=== PATIENT | male | born 1930 | race Caucasian/White ===

== ENCOUNTER 2016-12-26 12:05 | Outpatient (CLI) | END 2016-12-26 12:06 | LOC: AMBL 12:05 | PROVIDERS: ATTEND Internal Medicine Geriatric Medicine | DX: R20.0 Anesthesia of skin (principal) ==

== ENCOUNTER 2017-05-28 09:47 | Emergency (ER) ==
[2017-05-28 09:51] VITALS: BP 199/98; TEMP 97; BMI 28.7
[2017-05-28] MEDS ORDERED: ZESTRIL PO STA (10:05)
[2017-05-28] MEDS: AFRIN NASAL SPRAY NAS STA ×2 (10:17→10:25)
[2017-05-28] MEDS ORDERED: COCAINE 4% TP STA (10:34)
--- NOTE | 2017-05-28 10:53 | ED.PDOC ---
General ED Provider: Dr. GILBERT ROCHA Chief Complaint: Nosebleed Stated Complaint: nosebleed Time Seen by Physician: 09:50 (lisette with wilber at all times ) Mode of Arrival: Walk-In Information Source: Patient Exam Limitations: No limitations Primary Care Provider: GIBSON KINNEY Nursing and Triage Documentation Reviewed and Agree: Yes Reviewed sepsis parameters & appropriate labs ordered?: Yes System Inflammatory Response Syndrome: Not Applicable Sepsis Protocol: For patient's 13 years and over: Temp is 96.8 and below OR 101 and greater Pulse >90 BPM Resp >20/minute Acutely Altered Mental Status Are patient's symptoms suggestive of a new infection, such as: -Pneumonia -Skin, Soft Tissue -Endocarditis -UTI -Bone, Joint Infection -Implantable Device -Acute Abdominal Infection -Wound Infection -Meningitis -Blood Stream Catheter Infection -Unknown System Inflammatory Response Syndrome: Not Applicable EENT Complaint Exam - Nasal Complaint/Exam Onset/Duration: today Symptoms Are: Still present Timing: Intermittent Initial Severity: Mild Current Severity: Mild Location: Bilateral Character: Light bleeding Aggravating: Reports: Hypertension Alleviating: Reports: None Associated Signs and Symptoms: Reports: Nasal congestion. Denies: Bruising, Hematuria, Hematochezia, Sinus pain, Nasal discharge, Foreign body, Abnormal coags Related History: Reports: Anticoagulants (plavix) Nasal Surgical History: Reports: None Bleeding Present At: Right nostril, Left nostril Foreign Body Present: No Septal Hematoma: No Differential Diagnoses: Allergic Rhinitis, Coagulopathy, Hypertension Review of Systems - Review Of Systems Constitutional: Reports: No symptoms Eyes: Reports: No symptoms Ears, Nose, Mouth, Throat: Reports: Epistaxis Respiratory: Reports: No symptoms Cardiac: Reports: No symptoms GI: Reports: No symptoms : Reports: No symptoms Musculoskeletal: Reports: No symptoms Skin: Reports: No symptoms Neurological: Reports: No symptoms Endocrine: Reports: No symptoms Hematologic/Lymphatic: Reports: No symptoms All Other Systems: Reviewed and Negative Past Medical History - Past Medical History Previously Healthy: No Endocrine: Reports: None, Dyslipidemia Cardiovascular: Reports: None Respiratory: Reports: None Hematological: Reports: None Gastrointestinal: Reports: None Genitourinary: Reports: None Neuro/Psych: Reports: None Musculoskeletal: Reports: None Cancer: Reports: None - Surgical History General Surgical History: Reports: None - Family History Family History: Reports: None - Social History Smoking Status: Never smoker Hx Substance Use: No Alcohol Screening: Occasionally - Immunizations Tetanus Shot up to Date: No Physical Exam - Physical Exam Appearance: Well-appearing, No pain distress, Well-nourished Eyes: JEREMI, EOMI, Conjunctiva clear ENT: Epistaxis Respiratory: Airway patent, Breath sounds clear, Breath sounds equal, Respirations nonlabored Cardiovascular: RRR, Pulses normal, No rub, No murmur GI/: Soft, Nontender, No masses, Bowel sounds normal, No Organomegaly Musculoskeletal: Normal strength, ROM intact, No edema, No calf tenderness Skin: Warm, Dry, Normal color Neurological: Sensation intact, Motor intact, Reflexes intact, Cranial nerves intact, Alert, Oriented Psychiatric: Affect appropriate, Mood appropriate Physician Notification - Case Discussed Physician Notified: pmd Time of Notification: 10:55 (contact ENT) Physician Notified: purchase ENT Time of Notification: 11:37 Critical Care Note - Critical Care Note Total Time (mins): 0 Course - Course Hematology/Chemistry: 05/28/17 10:11 Orders, Labs, Meds: Lab Review 05/28/17 05/28/17 10:11 10:11 WBC 10.20 RBC 4.39 L Hgb 14.5 Hct 42.1 MCV 95.9 H MCH 33.0 H MCHC 34.4 RDW Coeff of Albin 14.0 Plt Count 218 Immature Gran % (Auto) 0.3 Neut % (Auto) 44.4 Lymph % (Auto) 34.5 [place] % (Auto) 15.6 H Eos % (Auto) 4.0 Baso % (Auto) 1.2 Immature Gran # (Auto) 0.0 Neut # 4.5 Lymph # 3.5 H [place] # 1.6 Eos # 0.4 Baso # 0.1 PT 11.2 H INR 1.10 APTT 24.7 Orders Category Date Time Status CBC W/ AUTO DIFF Stat LAB 05/28/17 10:11 Completed PARTIAL THROMBOPLASTIN TIME Stat LAB 05/28/17 10:11 Completed PT WITH INR Stat LAB 05/28/17 10:11 Completed Cocaine HCl [Cocaine 4% Alana] MEDS 05/28/17 10:34 Stat 1 applic TP ONCE STA Lisinopril [Zestril] MEDS 05/28/17 10:05 Discontinued 40 mg PO ONCE STA Oxymetazoline HCl [Afrin Nasal Emily] MEDS 05/28/17 10:06 Discontinued 2 spray RUBEN ONCE STA Medications Discontinued Medications Generic Name Dose Route Start Last Admin Trade Name Lisa PRN Reason Stop Dose Admin Cocaine HCl 1 applic 05/28/17 10:34 05/28/17 10:48 Cocaine 4% Alana TP 05/28/17 10:35 1 applic ONCE STA Administration Lisinopril 40 mg 05/28/17 10:05 05/28/17 10:48 Zestril PO 05/28/17 10:06 40 mg ONCE STA Administration Oxymetazoline HCl 2 spray 05/28/17 10:06 05/28/17 10:25 Afrin Nasal Emily RUBEN 05/28/17 10:07 2 spray ONCE STA Administration Vital Signs: Temp Pulse Resp BP Pulse Ox 05/28/17 09:49 97.0 F L 80 20 199/98 H 96 Departure - Departure Time of Disposition: 11:36 Disposition: HOME SELF-CARE Discharge Problem: Epistaxis Instructions: Nosebleed (ED) Condition: Good Pt referred to PMD for follow-up: Yes IPMP verified?: Yes Additional Instructions: NOSE Please call your Family Physician as soon as possible to schedule a follow-up appointment. Allergies/Adverse Reactions: Allergies No Known Allergies Allergy (Unverified 05/28/17 09:58) Home Medications: Ambulatory Orders Atorvastatin Calcium [Lipitor] 80 mg PO DAILY 05/28/17 Clopidogrel Bisulfate [Plavix] 75 mg PO DAILY 05/28/17
== END 2017-05-28 11:41 | disposition home or self-care (01) ==
LOC: ED 09:47
DX: R04.0 Epistaxis (principal); I10 Essential (primary) hypertension; E78.5 Hyperlipidemia, unspecified; Z79.02 Long term (current) use of antithrombotics/antiplatelets
CPT/HCPCS: 36415; 85025; 85610; 85730; 99283